=== PATIENT | male | born 1980 | race African-American/Black ===

== ENCOUNTER 2016-05-02 14:10 | Emergency (ER) | payer SELFPAY ==
[~2016-05-02] VITALS: Ht 175.3 cm; Wt 80.0 kg
[2016-05-02] MEDS ORDERED: SODIUM CHLORIDE 0.9% 1,000 ML IV ONE (14:28)
[2016-05-02] MEDS ORDERED: LORAZEPAM 2MG/ML CPJ IM ONE (14:30)
[2016-05-02] MEDS ORDERED: OLANZAPINE 10 MG/VIAL IM ONE (14:30)
[2016-05-02] MEDS ORDERED: LIDOCAINE HCL 1% 20ML VIAL (Pyxis) INJ MC ONE (14:45)
[2016-05-02] MEDS ORDERED: TETANUS, DIPHTHERIA, PERTUSSIS VAC/PF 0.5ML (>7YR OLD) IM ONE (14:45)
[2016-05-02 15:58] LABS: HEMATOCRIT. 38.3 % (42.0-52.0); HEMOGLOBIN. 12.1 g/dL (14.0-18.0); MEAN CORPUSCULAR HEMOGLOBIN 22.8 pg (28.0-32.0); MEAN CORPUSCULAR HGB CONC 31.5 g/dL (31.0-37.0); MEAN CORPUSCULAR VOLUME 72.3 fL (80.0-94.0); MEAN PLATELET VOLUME 9.2 fl (7.4-10.4); PLATELET 190 x1000/uL (130-400); RED BLOOD CELL COUNT 5.29 mill/uL (4.7-6.1); RED CELL DISTRIBUTION WIDTH 16.2 % (11.6-14.6); WHITE BLOOD COUNT 16.3 x1000/uL (4.5-11.0)
[2016-05-02 15:59] LABS: DIFFERENTIAL COMMENT 1
[2016-05-02 16:02] LABS: CHLORIDE 113 mEq/L (98-107); INDEX HEMOLYSI 1 (1-3); INDEX ICTERIC 1 (1-4); INDEX LIPEMIC 1 (1-3)
[2016-05-02 16:08] LABS: ALBUMIN 4.2 g/dL (3.4-5.0); ANION GAP 13; CALCIUM 8.5 mg/dL (8.5-10.1); CARBON DIOXIDE 23 mEq/L (21-32); ETHANOL BLOOD < 10 mg/dL; UREA NITROGEN BLOOD 18 mg/dL (7-21)
[2016-05-02 16:09] LABS: AMMONIA 32 uMol/L (<32)
[2016-05-02 16:11] LABS: ACETAMINOPHEN < 2 ug/mL (10-30); ALANINE AMINOTRANSFERASE 32 IU/L (13-61); CREATINE KINASE 497 IU/L (39-308); eGFR > 60 mL/min (>60)
[2016-05-02 16:19] LABS: THYROID STIMULATING HORMONE 0.72 uIU/mL (0.36-3.74)
[2016-05-02 16:25] LABS: BG BASE EXCESS -4.5 mmol/L (-2.0-2.0); BG CARBOXYHEMOGLOBIN 0.3 % (0.5-1.5); BG DEOXYHEMOGLOBIN 3.3 % (0.0-5.0); BG FRACTION INSPIRED OXYGEN 21; BG HCO3 ACT 20.9 mmol/L (22.0-26.0); BG METHEMOGLOBIN 0.3 % (0.0-1.5); BG OXYGEN SATURATION 96.7 % (92.0-98.5); BG OXYHEMOGLOBIN 96.1 % (94.0-97.0); BG PCO2 39.8 mmHg (35.0-45.0); BG PH 7.338 (7.350-7.450); BG PO2 94.3 mmHg (75.0-100.0); BG SAMPLE SITE RIGHT BRACHIAL; BG TOTAL HEMOGLOBIN 12.5 g/dL (12.0-18.0); BG VENT MODE ROOM AIR
[2016-05-02 16:47] LABS: CLARITY URINE CLOUDY (CLEAR); COLOR URINE DARK YELLOW (YELLOW); GLUCOSE URINE NEGATIVE (NEGATIVE); KETONES URINE TRACE (NEGATIVE); LEUKOCYTE ESTERASE URINE NEGATIVE (NEGATIVE); NITRITE URINE NEGATIVE (NEGATIVE); OCCULT BLOOD URINE NEGATIVE (NEGATIVE); PH URINE 5.5 (4.5-8.0); PROTEIN URINE 2+ (NEGATIVE); SPECIFIC GRAVITY URINE 1.036 (1.005-1.030)
[2016-05-02 16:56] LABS: *AMPHETAMINES SCREEN URINE PRESUMTIVE POSITIVE (NEGATIVE); *BARBITURATES SCREEN URINE NEGATIVE (NEGATIVE); *BENZODIAZEPINES SCREEN URINE NEGATIVE (NEGATIVE); *COCAINE SCREEN URINE NEGATIVE (NEGATIVE); CANNABINOID URINE SCREEN PRESUMTIVE POSITIVE (NEGATIVE); ECSTASY MDMA SCREEN URINE CONF.TEST INDICATED (NEGATIVE); METHADONE URINE SCREEN NEGATIVE (NEGATIVE); OPIATES URINE SCREEN NEGATIVE (NEGATIVE); PHENCYCLIDINE URINE SCREEN NEGATIVE (NEGATIVE)
[2016-05-02 17:14] LABS: BACTERIA URINE 1+; RBC URINE 0-2 /hpf (0-2); SQUAMOUS EPITHELIAL CELL URINE FEW /lpf (RARE/1+); WBC URINE 0-2 /hpf (0-2)
[2016-05-02 17:15] LABS: MUCUS URINE 2+ /lpf (NONE/TRACE)
[2016-05-02] MEDS ORDERED: MIDAZOLAM HCL 2 MG/2 ML VIAL ONE (17:30)
[2016-05-02 17:38] LABS: PLATELET ESTIMATE NORMAL
[2016-05-02 17:39] LABS: GIANT PLATELETS FEW; HYPOCHROMASIA 1+; PLATELET SATELLITISM FEW
[2016-05-02] MEDS ORDERED: BACITRACIN ZINC OINT UDPKT TOP ONE (18:30)
[2016-05-02] MEDS ORDERED: MIDAZOLAM HCL 2 MG/2 ML VIAL IV ONE (18:30)
[2016-05-03 05:26] VITALS: BP 111/81
== END 2016-05-03 05:46 | disposition home or self-care (01) ==
LOC: ER 14:14 → EDBD 14:14 → ER 05-03 05:46
DX: T50.905A Adverse effect of unspecified drugs, medicaments and biological substances, initial encounter (principal); S41.012A Laceration without foreign body of left shoulder, initial encounter; R41.82 Altered mental status, unspecified; R45.1 Restlessness and agitation; X58.XXXA Exposure to other specified factors, initial encounter; Y93.89 Activity, other specified; Y99.8 Other external cause status; Y92.89 Other specified places as the place of occurrence of the external cause
CPT/HCPCS: 12002; 36415; 36600; 51702; 70450; 71010; 73030; 80053; 80305; 80307; 80329; 81001; 82140; 82375; 82550; 82805; 82962; 84443; 85025; 86592; 90471; 90715; 93005; 96361; 96372; 96374; 99285; G0482; J2060; J2250; J3490; J7030; X7700; Z7610